=== PATIENT | male | born 1965 | race Caucasian/White ===

== ENCOUNTER 2016-12-11 23:32 | Emergency (ER) | payer BC ==
--- NOTE | 2016-12-11 23:39 | PDOC ---
History of Present Illness - General Chief Complaint: Pain Stated Complaint: ABD PAIN Time Seen by Provider: 12/11/16 23:39 History Source: Patient Exam Limitations: No Limitations - History of Present Illness Initial Comments: 12/11/16 23:44 This is a 51-year-old male with history of diverticulitis in the past 2 comes in complaining of left lower quadrant pain 3 days. Patient denies any fevers or chills at this point. Patient said it similar to that when he had diverticulitis in the past. Patient said his diverticulitis is always been treated as an outpatient and never required surgery or admission. PAST MEDICAL HISTORY: Diverticulitis PAST SURGICAL HISTORY: no significant history FAMILY HISTORY: no pertinant history SOCIAL HISTORY: Pt lives with family and is employed. MEDICATIONS: reviewed ALLERGIES: As per nursing notes Review of Systems General: No fevers or chills, no weakness, no weight loss HEENT: No change in vision. No sore throat,. No ear pain CardioVascular: No chest pain or shortness of breath Respiratory:No cough, or wheezing. Gastrointestinal: no nausea, vomitting, diarrhea or constipation, No rectal bleeding, + abdominal pain Genitourinary: No dysuria, hematuria, or frequency Musculoskeletal: No joint or muscle pain or swelling Neurologic: No headache, vertigo, dizziness or loss of consciousness Psychiatric: nor depression Skin: No rashes or easy bruising Endocrine: no increased thirst or abnormal weight change Allergic: no skin or latex allergy All other systems reviewed and normal Exam: General: Well-nourished well-developed individual, no acute distress HEENT: Throat: Normal, tonsils normal, no erythema or exudate Neck: Supple, no meningeal signs, no lymphadenopathy Eyes::Pupils equal reactive and round, extraocular motion intact Chest: Nontender to palpation Cardiac: S1-S2 normal, regular rate and rhythm, no murmurs rubs or gallops Respiratory: Lungs clear to auscultation bilateral Abdomen: Soft, nondistended, normal bowel sounds, + tender to palpation LLQ, there is no guarding or rebound. Extremities: Warm, dry, no cyanosis, clubbing, or edema Skin: No rashes Neuro: Alert and oriented x3, nonfocal exam, grossly intact, normal gait Psych: Normal mood and affect 12/12/16 03:[address] scan shows midly inflamed diverticulum/diverticulitis. Particularly in the left lower quadrant/early diverticulitis, inferior left renal cyst and tiny right lower lung nodule. Assessment and plan: This is a 51-year-old male who comes in complaining of left lower quadrant pain 3 days. Patient has history of diverticulitis with similar pain in the past. Patient had a workup that was done the including a CAT scan that showed mild early diverticulitis. There was also a tiny right lower lung nodule that patient was made aware of given a copy of his CAT scan. Patient started on Levaquin and Flagyl here in the emergency room given the first dose IV and discharged home will follow-up with his primary care doctor and continue the Levaquin and Flagyl for 10 days. Past History - Past Medical History Allergies/Adverse Reactions: Allergies Allergy/AdvReac Type Severity Reaction Status Date / Time No Known Allergies Allergy Verified 06/03/16 20:09 Home Medications: Ambulatory Orders Levofloxacin [Levaquin] 500 mg PO DAILY #10 tablet 12/12/16 Metronidazole [Flagyl -] 500 mg PO BID #20 tablet 12/12/16 GI Disorders: Yes (DIVERTICULITIS) - Surgical History Appendectomy: Yes - Psycho/Social/Smoking Cessation Hx Anxiety: No Suicidal Ideation: No Smoking Status: No Smoking History: Never smoked Have you smoked in the past 12 months: No Number of Cigarettes Smoked Daily: 0 Hx Alcohol Use: No Drug/Substance Use Hx: No Substance Use Type: None ED Treatment Course - LABORATORY CBC & Chemistry Diagram: 12/11/16 23:55 12/11/16 23:55 *DC/Admit/Observation/Transfer Diagnosis at time of Disposition: Diverticulitis large intestine Qualifiers: Diverticulitis bleeding: without bleeding Diverticulitis complication: without perforation or abscess Qualified Code(s): K57.32 - Diverticulitis of large intestine without perforation or abscess without bleeding - Discharge Dispostion Disposition: HOME Condition at time of disposition: Stable Admit: No - Prescriptions Prescriptions: Metronidazole [Flagyl -] 500 mg PO BID #20 tablet Levofloxacin [Levaquin] 500 mg PO DAILY #10 tablet - Patient Instructions Printed Discharge Instructions: DI for Diverticulitis Additional Instructions: For the diverticulitis take Levaquin once a day and Flagyl twice a day for 10 days you were given the first dose here in the emergency room. In addition to the diverticulitis her CAT scan did show a small lung nodule that should be worked up. Take a copy of your CAT scan to primary care doctor and follow-up the lung nodule. Return to the emergency department immediately with ANY new, persistent or worsening symptoms. Continue any medications as previously prescribed by your physician. You should follow up with your primary doctor as soon as possible regarding today's emergency department visit. . Please make sure your doctor reviews the results of your emergency evaluation. Thank you for coming to the Emergency Department today for your care. It was a pleasure to see you today. Please note that your evaluation is INCOMPLETE until you follow-up with your doctor.
[2016-12-11 23:42] VITALS: BP 133/95; PULSE 72; TEMP 97.8; BMI 32.3
[2016-12-11] MEDS ORDERED: SODIUM CHLORIDE 1,000 ML IV ONE (23:46)
[2016-12-12 00:25] LABS: BASOPHIL 0.4 % (0-2.0); EOSINOPHIL 2.3 % (0-4.5); MCH 29.6 pg (25.7-33.7); MEAN PLT VOLUME 7.5 fl (7.5-11.1); NEUTROPHILS 42.1 % (42.8-82.8); PLATELET COUNT 190 K/MM3 (134-434); RDW 12.8 % (11.9-15.9); WHITE BLOOD COUNT 7.7 K/mm3 (4.0-10.0)
[2016-12-12 00:31] LABS: URINE APPEARANCE CLEAR; URINE BILIRUBIN NEGATIVE (NEGATIVE); URINE BLOOD NEGATIVE (NEGATIVE); URINE COLOR YELLOW; URINE GLUCOSE (UA) NEGATIVE (NEGATIVE); URINE KETONE NEGATIVE (NEGATIVE); URINE LEUK ESTERASE NEGATIVE (NEGATIVE); URINE NITRITE NEGATIVE (NEGATIVE); URINE PROTEIN NEGATIVE (NEGATIVE); URINE UROBILINOGEN NEGATIVE E.U./dl (0.2-1.0)
[2016-12-12 00:49] LABS: INR 1.15 (0.82-1.09); PROTHROMBIN TIME (PATIENT) 12.7 SEC (9.98-11.88)
[2016-12-12 01:01] LABS: ALBUMIN 4.1 g/dl (3.4-5.0); ANION GAP 12 (8-16); CALCIUM 8.9 mg/dL (8.5-10.1); CO2 28 mmol/L (21-32); COCKROFT - GAULT 124.73; GLUCOSE,RANDOM 93 mg/dL (74-106); SGOT/AST 21 U/L (15-37); SGPT/ALT 30 U/L (12-78)
[2016-12-12 01:03] LABS: ALK PHOS 99 U/L (45-117); BILIRUBIN,TOTAL 0.5 mg/dL (0.2-1.0); TOT PROT 7.2 g/dl (6.4-8.2)
[2016-12-12] MEDS ORDERED: LEVOFLOXACIN 500 MG IVPB 100 ML IVPB ONE ×2 (03:04→03:07)
[2016-12-12] MEDS ORDERED: METRONIDAZOLE 500 MG PREMIXED 100 ML IVPB ONE ×2 (03:05→03:08)
== END 2016-12-12 05:14 | disposition home or self-care (01) ==
LOC: FER 23:32
PROC: 3E03329 Introduction of Other Anti-infective into Peripheral Vein, Percutaneous Approach (ICD-10-PCS; principal; 2016-12-11)
PROC: 3E0337Z Introduction of Electrolytic and Water Balance Substance into Peripheral Vein, Percutaneous Approach (ICD-10-PCS; 2016-12-11)
DX: K57.32 Diverticulitis of large intestine without perforation or abscess without bleeding (principal)
CPT/HCPCS: 36415; 74177-TC; 80053; 81003; 83690; 85025; 85610; 99283-25

== ENCOUNTER 2017-03-05 23:42 | Emergency (ER) | payer OTHER, BC ==
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
[2017-03-05] MEDS ORDERED: IBUPROFEN 600 MG TABLET (FP) PO ONE (23:47)
[2017-03-05 23:55] VITALS: BP 115/71; PULSE 78; TEMP 98.2; BMI 33.4
== END 2017-03-06 01:29 | disposition home or self-care (01) ==
LOC: FER 23:42
DX: S39.012A Strain of muscle, fascia and tendon of lower back, initial encounter (principal); M25.532 Pain in left wrist; V43.52XA Car driver injured in collision with other type car in traffic accident, initial encounter; Y93.89 Activity, other specified; Y92.410 Unspecified street and highway as the place of occurrence of the external cause
CPT/HCPCS: 72070-TC; 72100-TC; 73110-TC-LT; 99283-25

== ENCOUNTER 2019-07-30 19:52 | Emergency (ER) | payer BC, OTHER ==
[2019-07-30 20:00] VITALS: BP 141/98; PULSE 79; TEMP 97.6; BMI 33.4
--- NOTE | 2019-07-30 20:48 | PDOC ---
Documentation entered by Carol Chapa SCRIBE, acting as scribe for Main Kennedy MD. Main Kennedy MD: This documentation has been prepared by the sherwinibe, Carol Chapa SCRIBE, under my direction and personally reviewed by me in its entirety. I confirm that the documentation accurately reflects all work, treatment, procedures, and medical decision making performed by me. History of Present Illness - General Chief Complaint: Injury Stated Complaint: left foot and left 3 rd toe injury Time Seen by Provider: 07/30/19 20:08 History Source: Patient Exam Limitations: No Limitations - History of Present Illness Initial Comments: 07/30/19 20:16 The patient is a 54 year old male with a significant past medical history of diverticulitis who presents to the emergency department with an injury to his toe. Patient states he tripped while trying to put his shoes on yesterday. Patient noticed swelling and bruising on his toe prompting him to the ER. PAST MEDICAL HISTORY: Diverticulitis. PAST SURGICAL HISTORY: Appendectomy. FAMILY HISTORY: no pertinent history SOCIAL HISTORY: Pt lives with family and is employed. MEDICATIONS: reviewed ALLERGIES: No Known Drug Allergies. General: No fevers or chills, no weakness, no weight loss HEENT: No change in vision. No sore throat,. No ear pain CardioVascular: No chest pain or shortness of breath Respiratory:No cough, or wheezing. Gastrointestinal: no nausea, vomiting, diarrhea or constipation, No rectal bleeding Genitourinary: No dysuria, hematuria, or frequency Musculoskeletal:+swelling on his left 3rd toe. No joint or muscle pain Neurologic: No headache, vertigo, dizziness or loss of consciousness Psychiatric: nor depression Skin: No rashes or easy bruising Endocrine: no increased thirst or abnormal weight change Allergic: no skin or latex allergy All other systems reviewed and normal GENERAL: The patient is awake, alert, and fully oriented, in no acute distress. HEAD: Normal with no signs of trauma. EYES: Pupils equal, round and reactive to light, extraocular movements intact, sclera anicteric, conjunctiva clear. EXTREMITIES:+tenderness, ecchymosis, and swelling to his left mid 3rd toe. Normal range of motion. NEUROLOGICAL: Normal speech, normal gait. PSYCH: Normal mood, normal affect. SKIN: Warm, Dry, normal turgor, no rashes noted. 07/30/19 20:17 07/30/19 20:46 Assessment and plan: This is a 54-year-old male who stubbed his little toe yesterday while putting his shoes on. Patient had x-ray that was negative for any fracture or acute pathology Patient discharged we will follow-up with his primary care doctor as needed. Past History - Past Medical History Allergies/Adverse Reactions: Allergies Allergy/AdvReac Type Severity Reaction Status Date / Time No Known Allergies Allergy Verified 07/30/19 19:54 Home Medications: Ambulatory Orders NK [No Known Home Medication] 07/30/19 COPD: No GI Disorders: Yes (DIVERTICULITIS) - Surgical History Appendectomy: Yes - Psycho Social/Smoking Cessation Hx Smoking Status: No Smoking History: Never smoked Have you smoked in the past 12 months: No Number of Cigarettes Smoked Daily: 0 Hx Alcohol Use: No Drug/Substance Use Hx: No Substance Use Type: None *Physical Exam - Vital Signs Last Vital Signs Temp Pulse Resp BP Pulse Ox 97.6 F 79 18 141/98 96 07/30/19 19:53 07/30/19 19:53 07/30/19 19:53 07/30/19 19:53 07/30/19 19:53 ED Treatment Course - RADIOLOGY Radiology Studies Ordered: Category Date Time Status TOE(S) LEFT [RAD] Stat Radiology 07/30/19 20:12 Taken Discharge - Discharge Information Problems reviewed: Yes Clinical Impression/Diagnosis: Sprain of toe, third, left Condition: Stable Disposition: HOME - Admission No - Follow up/Referral - Patient Discharge Instructions Additional Instructions: Frederic tape the toe to a neighboring toe as needed for comfort. Tylenol or Motrin as needed for pain. Your x-ray was negative for any fractures. Return to the emergency department immediately with ANY new, persistent or worsening symptoms. Continue any medications as previously prescribed by your physician. You should follow up with your primary doctor as soon as possible regarding today's emergency department visit. . Please make sure your doctor reviews the results of your emergency evaluation. Thank you for coming to the Emergency Department today for your care. It was a pleasure to see you today. Please note that your evaluation is INCOMPLETE until you follow-up with your doctor. - Post Discharge Activity
== END 2019-07-30 20:53 | disposition home or self-care (01) ==
LOC: FER 19:52
PROC: 2W3VXYZ Immobilization of Left Toe using Other Device (ICD-10-PCS; principal; 2019-07-30)
DX: S93.505A Unspecified sprain of left lesser toe(s), initial encounter (principal); W22.01XA Walked into wall, initial encounter; Y93.89 Activity, other specified; Y92.89 Other specified places as the place of occurrence of the external cause
CPT/HCPCS: 73660-TC-LT-FY; 99281-25

== ENCOUNTER 2020-09-16 18:04 | Emergency (ER) | payer BC, OTHER ==
[2020-09-16] MEDS ORDERED: ACETAMINOPHEN 1000 MG/100 ML VIAL (NON FORMULARY) IVPB ONE (18:15)
[2020-09-16] MEDS ORDERED: SODIUM CHLORIDE 0.9% 1000 ML INFUS.BAG IV ONE (18:15)
[2020-09-16 18:23] VITALS: BP 113/81; PULSE 78; TEMP 97.6; BMI 31.5
[2020-09-16] MEDS ORDERED: ACETAMINOPHEN INJECTION 100 ML IVPB ONE (18:26)
[2020-09-16 18:36] LABS: BASO % 1.5 % (0-2.0); EOS % 2.7 % (0-4.5); HEMATOCRIT 41.2 % (35.4-49); HEMOGLOBIN 14.2 GM/dl (11.7-16.9); LYMPH % 41.7 % (8-40); MCH 31.1 pg (25.7-33.7); MCHC 34.3 g/dl (32.0-35.9); MEAN CELL VOLUME 90.6 fl (80-96); MEAN PLT VOLUME 7.6 fl (7.5-11.1); MONO % 7.2 % (3.8-10.2); NEUT % 46.9 % (42.8-82.8); PLATELET COUNT 197 K/MM3 (134-434); RBC 4.55 M/mm3 (4.00-5.60); RDW 11.9 % (11.9-15.9); WHITE BLOOD COUNT 7.1 K/mm3 (4.0-10.8)
[2020-09-16 18:51] LABS: ALBUMIN 4.3 g/dl (3.4-5.0); BILIRUBIN,TOTAL 0.8 mg/dl (0.2-1); CALCIUM 9.1 mg/dl (8.5-10); CREATININE 0.9 mg/dl (0.55-1.3); TOT PROT 7.3 g/dl (6.4-8.2)
== END 2020-09-16 21:29 | disposition home or self-care (01) ==
LOC: FER 18:04
PROC: 3E033NZ Introduction of Analgesics, Hypnotics, Sedatives into Peripheral Vein, Percutaneous Approach (ICD-10-PCS; principal; 2020-09-16)
DX: R10.12 Left upper quadrant pain (principal)
CPT/HCPCS: 36415; 74177-TC; 80053; 81003; 84484; 85025; 87086; 93005; 99285-25; J0131; Q9967

== ENCOUNTER 2021-09-19 19:23 | Emergency (ER) | payer BC, OTHER ==
[2021-09-19 19:32] VITALS: BP 120/74; PULSE 73; TEMP 98.3; BMI 31.5
[2021-09-19 20:40] LABS: INR 1.23 (0.83-1.09); PROTHROMBIN TIME (PATIENT) 14.2 SEC (9.7-13.0)
[2021-09-19 20:47] LABS: ALBUMIN 4.2 g/dl (3.4-5.0); BILIRUBIN,TOTAL 0.5 mg/dl (0.2-1); CALCIUM 9.2 mg/dl (8.5-10); CREATININE 0.9 mg/dl (0.55-1.3); TOT PROT 6.9 g/dl (6.4-8.2)
[2021-09-19 21:09] LABS: BASO % 0.5 % (0-2.0); EOS % 2.6 % (0-4.5); HEMATOCRIT 41.3 % (35.4-49); HEMOGLOBIN 13.7 GM/dL (11.7-16.9); LYMPH % 39.7 % (8-40); MCH 29.5 pg (25.7-33.7); MCHC 33.3 g/dl (32.0-35.9); MEAN CELL VOLUME 88.7 fl (80-96); MEAN PLT VOLUME 7.4 fl (7.5-11.1); MONO % 5.7 % (3.8-10.2); NEUT % 51.5 % (42.8-82.8); PLATELET COUNT 229 10^3/uL (134-434); RBC 4.66 M/mm3 (4.00-5.60); RDW 12.7 % (11.9-15.9); WHITE BLOOD COUNT 6.3 K/mm3 (4.0-10.0)
[2021-09-19] MEDS ORDERED: CIPROFLOXACIN 250 MG TABLET (RESTRICTED TO ID) PO ONE ×2 (22:11→22:17)
[2021-09-19] MEDS ORDERED: metroNIDAZOLE 500 MG TABLET PO ONE (22:11)
[2021-09-19] MEDS ORDERED: metroNIDAZOLE 250 MG TABLET ONE (22:17)
== END 2021-09-19 22:21 | disposition home or self-care (01) ==
LOC: FER 19:23
DX: K57.92 Diverticulitis of intestine, part unspecified, without perforation or abscess without bleeding (principal)
CPT/HCPCS: 36415; 74177-TC; 80053; 85025; 85610; 99285-25; Q9967

== ENCOUNTER 2022-09-05 19:28 | Emergency (ER) | payer BC, OTHER ==
[2022-09-05] MEDS ORDERED: AMOX TR/POT CLAV 875MG/125MG TABLETS (FP) PO ONE (19:47)
[2022-09-05] MEDS ORDERED: AMOX TR/POT CLAV 875MG/125MG TABLETS (FP) ONE (19:53)
[2022-09-05 20:17] VITALS: BP 136/97; PULSE 74; RESP 16; TEMP 97.9; BMI 33.5
== END 2022-09-05 19:55 | disposition home or self-care (01) ==
LOC: FER 19:28
DX: K57.92 Diverticulitis of intestine, part unspecified, without perforation or abscess without bleeding (principal)
CPT/HCPCS: 99283-25

== ENCOUNTER 2023-04-16 12:08 | Emergency (ER) | payer BC, OTHER ==
[2023-04-16 12:16] VITALS: BP 127/88; PULSE 82; RESP 16; TEMP 99; BMI 33.4
[2023-04-16] MEDS ORDERED: ACETAMINOPHEN 325 MG TABLET (FP) PO ONE (13:03)
[2023-04-16] MEDS ORDERED: AMOX TR/POT CLAV 875MG/125MG TABLETS (FP) PO ONE (13:04)
[2023-04-16] MEDS ORDERED: ACETAMINOPHEN 325 MG TABLET (FP) ONE (13:08)
[2023-04-16] MEDS ORDERED: AMOX TR/POT CLAV 875MG/125MG TABLETS (FP) ONE (13:08)
== END 2023-04-16 13:20 | disposition home or self-care (01) ==
LOC: FER 12:08
DX: R10.32 Left lower quadrant pain (principal); K57.92 Diverticulitis of intestine, part unspecified, without perforation or abscess without bleeding
CPT/HCPCS: 99283-25